=== PATIENT | male | born 1985 | race Caucasian/White ===

== ENCOUNTER → 2022-02-01 09:59 | Outpatient (BNVA) | payer MEDICAID, SELFPAY | PROVIDERS: PCP Nurse Practitioner; Visit Provider Orthopaedic Surgery | DX: R20.0 Anesthesia of skin (principal); R20.2 Paresthesia of skin | CPT/HCPCS: 99202 ==

== ENCOUNTER 2022-05-05 18:30 | Emergency (ER) | payer OTHER, MEDICAID, SELFPAY ==
--- NOTE | ~2022-05-05 | CT_ITS ---
EXAMINATION: CT CHEST WITHOUT CONTRAST CLINICAL INFORMATION: Pain status post trauma COMPARISON: None TECHNIQUE: Multidetector volumetric CT imaging of the chest was done. Axial MIP volume rendering provided. Sagittal and coronal reformatted images were obtained. This CT examination was performed using dose optimization techniques as appropriate, variously including the following: *Automated exposure control *Adjustment of mA and/or kV according to patient size (this includes techniques or standardized protocols for targeted exams where dose is matched to indication/reason for exam; i.e. 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 MEDIASTINUM: The mediastinum is normal. PLEURA: There is no pleural effusion. No pleural mass or thickening. AXILLA: No lymphadenopathy. Pronounced gynecomastia bilaterally. UPPER ABDOMEN: Unremarkable. OSSEOUS STRUCTURES: Unremarkable. CT/CT chest wo con IMPRESSION: Unremarkable examination. Within normal limits. No left-sided rib fracture. Fleischner guidelines were followed.
[2022-05-05 19:21] VITALS: BP 127/84; PULSE 75; RESP 20; TEMP 36.1; O2SAT 100; BMI 37.8
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
[2022-05-05 22:46] VITALS: BP 119/63; PULSE 65; RESP 20; O2SAT 99
[2022-05-05] MEDS: oxyCODONE HCl Immed Release 5 MG TABLET 10 MG PO (23:29)
== END 2022-05-05 23:31 | disposition home or self-care (01) ==
PROVIDERS: Emergency Provider Internal Medicine
DX: S20.212A Contusion of left front wall of thorax, initial encounter (principal); V47.5XXA Car driver injured in collision with fixed or stationary object in traffic accident, initial encounter; Y93.89 Activity, other specified; Y92.414 Local residential or business street as the place of occurrence of the external cause; Y99.9 Unspecified external cause status
CPT/HCPCS: 71250; 99283; 99284

== ENCOUNTER 2025-04-21 11:26 | Emergency (ER) | payer MEDICAID, SELFPAY ==
--- NOTE | ~2025-04-21 | XR_ITS ---
EXAMINATION: XR HIP, RIGHT CLINICAL INFORMATION: Fall, pain COMPARISON: None available. TECHNIQUE: AP pelvis and AP and lateral view right hip x-ray FINDINGS: 2 cannulated screws have been placed from a lateral approach into the greater trochanter straightening to the region of the medial femoral neck and lesser trochanter. A wire loops down into the proximal diaphysis of the femur. There is callus formation along the lateral proximal femoral diaphysis. There is flattening of the superior femoral head and moderate medial marginal osteophytes. There is also deformity with flattening of the right acetabular roof and marginal osteophytes. The left hip joint is unremarkable. SI joints are symmetrical and within normal limits. XR/XR hip RT w PEL1V IMPRESSION: Chronic appearing abnormality of the right hip joint, likely posttraumatic osteoarthritis. If there is concern for an acute fracture, consider CT. Electronically signed by: Boby Pichardo MD 04/21/2025 12:07 PM EDT
--- NOTE | ~2025-04-21 | CT_ITS ---
EXAMINATION: CT HIP WITHOUT CONTRAST, RIGHT CLINICAL INFORMATION: Right hip pain. COMPARISON: Right hip plain films dated earlier same day. TECHNIQUE: Multidetector volumetric imaging was obtained through the right hip without contrast material. Multiplanar reformatted images were submitted in coronal and sagittal planes. This CT examination was performed using dose optimization techniques as appropriate, variously including the following: *Automated exposure control *Adjustment of mA and/or kV according to patient size (this includes techniques or standardized protocols for targeted exams where dose is matched to indication/reason for exam; i.e. extremities or head) *Use of iterative reconstruction technique FINDINGS: There is no definite acute fracture or dislocation. There is a healed right proximal femoral fracture, fixated by 2 compression screws oriented lateral to medial from the greater trochanter and terminating in the right femoral neck region. There is no periscrew lucency to suggest loosening of the hardware. There is a solitary cerclage wire extending inferiorly, coursing through bony callus. Large amount of bony callus is present inferior to the greater trochanter from healing. There is mild flattening of the femoral head and flattening of the superior acetabulum. There are both superior acetabular osteophytes, and subcapital osteophytes present with mild to moderate joint space narrowing. There is no joint effusion present. The imaged pelvic girdle musculature is normal in appearance. No abnormal fluid collection is present. Imaged intrapelvic viscera appear normal. No inguinal abnormalities. CT/CT hip RT wo IV con IMPRESSION: 1. No acute findings of the right hip or imaged pelvis. 2. Moderate likely posttraumatic arthropathy of the right hip joint. Electronically signed by: Owen Moore MD 04/21/2025 02:01 PM EDT
[2025-04-21 11:29] VITALS: BP 128/70; PULSE 85; RESP 16; TEMP 36.4; O2SAT 99; BMI 36.2
--- NOTE | 2025-04-21 11:30 | ED_ITS ---
HPI - Extremity Injury (Lower) General Chief Complaint: Extremity Injury, Lower Stated Complaint: R hip injury Time Seen by Provider: 04/21/25 12:45 Source: patient and family Mode of arrival: ambulatory Limitations: no limitations History of Present Illness ED Provider: DR. Pereira HPI Narrative: Patient is a 40-year-old male who presents emergency department for evaluation, reporting My hip popped on monday while dancing with kids and made a quick turn, with resultant fall. States when I was 13 they cut off a part of my bone nad put 2 screws in it chronically right lower extremity is longer than the left. Denies chronic pain . Has had no relief from lidocaine patch, ibuprofen, icy hot. Patient still able to ambulate and bear weight with difficulty. Related Data Previous Rx's ?Medication ?Instructions ?Recorded ibuprofen 600 mg tablet 600 mg PO Q6H PRN pain #30 t abs 05/05/22 oxycodone-acetaminophen 5 mg-325 1 tab PO Q6H PRN pain #20 tabs 05/05/22 mg tablet (Percocet) oxycodone 5 mg tablet 5 mg PO BID PRN pain #7 tabs 04/21/25 Allergies Allergy/AdvReac Type Severity Reaction Status Date / Time No Known Allergies Allergy Verified 04/21/25 11:32 Review of Systems Review of Systems: All other systems are reviewed and are negative Constitutional: Reports as per HPI and Reports no additional constitutional complaints Eyes: Reports as per HPI and Reports no additional eye complaints Reports system reviewed and no additional complaints, except as documented Cardiovascular: Reports as per HPI and Reports no additional cardiovascular complaints Respiratory: Reports as per HPI and Reports no additional respiratory complaints Gastrointestinal: Reports as per HPI and Reports no additional gastrointestinal complaints Genitourinary: Reports no additional female genitourinary complaints Musculoskeletal: Reports no additional musculoskeletal complaints Skin/Breast: Reports system reviewed and no additional complaints, except as docu Psychiatric: Reports no additional psychiatric complaints Endocrine: Reports no additional endocrine complaints Hematologic/Lymphatic: Reports no additional hematologic/lymphatic complaints Allergic/Immunologic: Reports no additional allergic/immunologic complaints Reports system reviewed and no additional complaints, except as documented and Reports Abnormal speech present PMFSH Past Medical History Surgical History History of hip surgery Social History Social History Unable to assess alcohol history related to: Unknown Use of substances other than those prescribed or required for medical reasons: Unknown Advance Directives: No Advance Directives Information Provided: Yes Do you have a plan to hurt others: No Plan Current occupational status: employed 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 Blood pressure elevated. Heart rate normal. Respiratory rate normal. Temperature normal. Oxygen saturation normal. Appearance: Alert. Oriented X3. No acute distress. Head: Normal external exam. Normocephalic. Atraumatic. No Streeter signs noted. No raccoon eyes noted Eyes: PERRLA. EOMI. Conjunctiva and sclera normal. Eyelids normal. ENT: TM's Normal. Pharynx normal. Uvula midline. Moist mucous membranes. No trismus noted. No drooling noted. No muffled voice noted. Neck: Normal inspection. Neck supple. FROM. No adenopathy. Thyroid Normal. No meningeal signs. No neck mass noted. CVS: Normal heart rate and rhythm. Heart sound normal. No murmurs noted. Pulses normal throughout. Respiratory: No respiratory distress. Painless inspiration. Breath sounds normal. No wheezes/rales/rhonchi noted. Chest nontender. No accessory muscle usage noted or decreased air movement noted. Abdomen: Soft and nontender. Bowel sounds normal in all 4 quadrants. No distention noted. No organomegaly noted. No visible injury noted. Back: No CVA tenderness. Full range of motion noted. Skin: Skin warm and dry. Normal skin color. Normal skin turgor. No rashes/lesions/lacerations noted. Extremities: No obvious deformity in the right hip joint, no step-off, No lower extremity edema. Extremities exhibit normal range of motion. Extremities nontender. Neuro: Oriented X 3. Cranial nerve exam: II-XII are grossly intact No motor deficit. No sensory deficit. Reflexes normal. Course Course Course Narrative: This is an RME performed by Branden Dominguez CNP: Additional HPI, ROS, PE not included below will be deferred to primary provider. Patient is a 40-year-old male who presents emergency department for evaluation, reporting My hip popped on monday while dancing with kids and made a quick turn, with resultant fall. States when I was 13 they cut off a part of my bone nad put 2 screws in it . Denies chronic pain . Has had no relief from lidocaine patch, ibuprofen. Plan: XR Reevaluation(s) Reevaluation #1: Patient feels better after pain medication, history of chronic osteoarthritis, history of right hip surgery, x-ray/CT of the right hip are unremarkable. Sprain of the right hip is the most likely diagnosis. No fever, no chills, no cellulitic address change clerk the joint, no concern of infection. Time: 15:15 Medications Administered Discontinued Medications Generic Name Dose Route Start Last Admin Trade Name Freq PRN Reason Stop Dose Admin Hydromorphone HCl 2 mg 04/21/25 12:52 04/21/25 13:04 Hydromorphone Hcl 2 Mg/Ml Vial IM 04/21/25 12:53 2 mg ONCE ONE Administration Protocol Ketorolac Tromethamine 15 mg 04/21/25 12:52 04/21/25 13:04 Ketorolac Tromethamine 15 Mg/Ml Vial IM 04/21/25 12:53 15 mg ONCE ONE Administration Medical Decision Making Differential Diagnosis Differential Diagnoses: The differential diagnosis associated with the presentation includes (Right hip fracture, right hip dislocation, right hip infection, myofascial pain, hip sprain.) Admission/Observation Consideration of admission/observation: Escalation of care including admission/observation considered Independent Interpretation I performed an independent interpretation of an: Plain X-Ray (Right hip x- ray:Chronic appearing abnormality of the right hip joint, likely posttraumatic osteoarthritis. If there is concern for an acute fracture, consider CT. ) and CT Scan (Right hip:1. No acute findings of the right hip or imaged pelvis. 2. Moderate likely posttraumatic arthropathy of the right hip joint.) Radiology Impression Discussion of test interpretation with radiology: I have reviewed the radiologist's reading. 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 No Action oxycodone-acetaminophen [Percocet] 5-325 mg tablet 1 tab PO Q6H PRN (Reason: pain) Qty: 20 0RF Rx Instructions: Partial Fill upon patient request. ibuprofen 600 mg tablet 600 mg PO Q6H PRN (Reason: pain) Qty: 30 0RF Referrals: Joaquin Earl MD [Physician, Orthopedics] Print Language: Panamanian
--- NOTE | 2025-04-21 12:56 | PC.NURSE ---
Patient is a 40 yo male who presents with a chronic right hip condition. States he felt a pop when rotating that hip and started with pain. Respirations even and non-labored. Abdomen soft, non-tender with positive bowel sounds. Positive pedal pulses with no edema.
--- OUTSIDE RECORDS SUMMARY | 2025-04-21 13:28 | XMS_ITS | Clinical Summary ---
Author Organization [employer] Address [address] [place] [address] [address] [place] [address] Care Team Providers Care Registered Midwife Name Role Phone Neeru Ribera NP Primary Care Provider [phone] Allergies No known active allergies Medications No known medications Active Problems Problem Noted Date Diagnosed Date Dental abscess 03/27/2024 Dental calculus 03/27/2024 Severe dental caries 03/27/2024 Allergic rhinitis 12/30/2021 Paresthesia of both hands 12/30/2021 Social History Tobacco Use Types Packs/Day Years Used Date Smoking Tobacco: Every Day Cigarettes Smokeless Tobacco: Never Tobacco Cessation:Ready to Q uit: Not Asked; Counseling Given: Not Answered Alcohol Use Standard Drinks/Week Comments Defer 0 (1 standard drink = 0.6 oz pur e alcohol) Sex and Gender Information Value Date Recorded Sex Assigned at Male 08/15/2022 10:40 AM EDT Legal Sex Male 10:40 AM EDT Gender Identity Male 08/15/2022 10:40 AM EDT Sexual Orientation Straight 08/15/2022 10 :40 AM EDT Last Filed Vital Signs Vital Sign Reading Time Taken Comments Blood Pressure 112/76 06/06/2024 8:06 AM EDT Pulse 70 03/27/2024 9:03 AM EDT Temperature - - Respiratory Rate - - Oxygen Saturation - - Inhaled Oxygen Concentration - - Weight 99.2 kg (218 lb 9.6 oz) 05/16/2022 12:08 AM EDT Height 161.3 cm (5' 3.5 ) 05/16/2022 12:08 AM ED T Body Mass Index 38.12 05/16/2022 12:08 AM EDT Plan of Treatment Health Maintenance Due Date Last Done Comments Depression Screening 1986 SDOH Screening 1986 Disability Screening 1986 Alcohol/Substance Use Screening 1998 Family Planning (PISQ) 2001 DTaP/Tdap/Td Vaccines (1 - Tdap) 2005 Hepatitis B Vaccines (1 of 3 - 19+ 3-dose series) 2005 Pneumococcal Vaccine: Pediatrics (0 to 5 Years) and At-Risk Patients (6 to 49) Years (1 of 2 - PCV) 2005 COVID-19 Vaccine ( - 2023-2 5 season) 2024 07/23/2021, 07/01/2021 Dental Oral Exam 10/19/2024 04/17/2024 Dental Prophylaxis 12/08/2024 06/06/2024 Dental X-Ray: Bitewings 04/18/2025 04/17/20, 03/04/2024 Tobacco Screening 06/06/2025 06/06/2024 Influenza Vaccine (#1) 2025 Lipid Panel 01/04/2027 01/04/2022 Dental X-Ray: Full Mouth 04/18/2027 04/17/2024 Zoster Vaccines (1 of 2) 2036 RSV Patients and Patients Aged 60 years or older (1 - 1-dose 75+ series) 2061 HIV Screening Completed 01/04/2022 Hepatitis C Screening Completed 01/04/2022 HIB Vaccines Aged Out No longer eligi ble based on patient's age to complete this topic HPV Vaccines Aged Out No longer eligi ble based on patient's age to complete this topic Hepatitis A Vaccines Aged Out No long er eligible based on patient's age to complete this topic IPV Vaccines Aged Out No longer eligi ble based on patient's age to complete this topic Meningococcal B Vaccine Aged Out No l onger eligible based on patient's age to complete this topic Meningococcal Vaccine Aged Out No ana luisa tere eligible based on patient's age to complete this topic RSV under 20 months Aged Out No longe r eligible based on patient's age to complete this topic Rotavirus Vaccines Aged Out No longer eligible based on patient's age to complete this topic Procedures Procedure Name Priority Date/Time Associated Diagnosis Comments PROPHYLAXIS - ADULT Routine 06/06/2024 8 :00 AM EDT Dental plaque Dental calculus Subgingival dental calculus Periodontal disease INTRAORAL - COMPLETE SERIES OF RADIOGRAPHIC IMAGES Routine 04/17/2024 10:30 AM EDT Encounter for dental examination Periodontal disease Dental calculus COMPREHENSIVE ORAL EVALUATION - NEW OR ESTABLISHED PATIENT Routine 04/17/2024 10:30 AM EDT Encounter for dental examination Periodontal disease Dental calculus ZZZ HISTORICAL HEPATITIS C AB W/REFL TO HCV RNA, QN, PCR Routine 01/04/2022 9:47 AM EDT HIV 1/2 ANTIGEN/ANTIBODY, FOURTH GENERATION W/RFL Routine 01/04/2022 9:47 AM EDT LIPID PANEL, STANDARD Routine 01/04/2022 9:47 AM EDT from Last 3 Months or Most Recently Relevant to Health Maintenance Results * HEPATITIS C AB W/REFL TO HCV RNA, QN, PCR (01/04/2022 9:47 AM EDT) HEPATITIS C ANTIBODY NON-REACT CIARAN NON-REACT CIARAN [facility] INDEX 0.02 <1.00 [facility] Comment: HCV antibody was non-reactive. There is no laboratory evidence of HCV infection. In most cases, no further action is required. However, if recent HCV exposure is suspected, a test for HCV RNA (test code 64089) is suggested. For additional information please refer to http://education.[employer].NetTalon/faq/WFZ58l1 (This link is being provided for informational/ educational purposes only.) 01/04/2022 9:47 AM EDT us Kizzy Velasquez NP HISTORICAL/NON ORDERABLE LABS F inal Result [facility] [address] * HIV 1/2 ANTIGEN/ANTIBODY,FOURTH GENERATION W/RFL (01/04/2022 9:47 AM EDT) HIV-1/2 ANTIGEN AND ANTIBODIES, 4TH GENERATION W/ REFLEX NON-REACT CIARAN NON-REACT CIARAN [facility] Comment: HIV-1 antigen and HIV-1/HIV-2 antibodies were not detected. There is no laboratory evidence of HIV infection. PLEASE NOTE: This information has been disclosed to you from records whose confidentiality may be protected by state law. If your state requires such protection, then the state law prohibits you from making any further disclosure of the information without the specific written consent of the person to whom it pertains, or as otherwise permitted by law. A general authorization for the release of medical or other information is NOT sufficient for this purpose. For additional information please refer to http://education.groopify/faq/AJQ771 (This link is being provided for informational/ educational purposes only.) The performance of this assay has not been clinically validated in patients less than 2 years old. 01/04/2022 9:47 AM EDT Kizzy Velasquez NP LAB BLOOD ORDERABLES Final Resu lt [facility] [address] * (ABNORMAL) LIPID PANEL, STANDARD (01/04/2022 9:47 AM EDT) Chol/HDLC Ratio 4.0 <5.0 (calc) [facility] Cholesterol, Total 185 <200 mg/dL [facility] HDL Cholesterol 46 > OR = 40 mg/dL [facility] LDL Cholesterol 113(H) mg/dL (calc) [facility] Comment: Reference range: <100 Desirable range <100 mg/dL for primary prevention; <70 mg/dL for patients with CHD or diabetic patients with > or = 2 CHD risk factors. LDL-C is now calculated using the Misha-Jaron calculation, which is a validated novel method providing better accuracy than the Friedewald equation in the estimation of LDL-C. Misha SOTO et al. ABBEY. 2013;310(19): 9637-6807 (http://education.[employer].NetTalon/faq/UYK411) Non-HDL Cholesterol 139(H) <130 mg/dL (calc) [facility] Comment: For patients with diabetes plus 1 major ASCVD risk factor, treating to a non-HDL-C goal of <100 mg/dL (LDL-C of <70 mg/dL) is considered a therapeutic option. Triglycerides 149 <150 mg/dL [facility] 01/04/2022 9:47 AM EDT us Kizzy Velasquez NP LAB BLOOD ORDERABLES Final Resu lt [facility] [address] from Last 3 Months or Most Recently Relevant to Health Maintenance Insurance [facility] STAND ADULT Care Teams Registered Midwife Relationship Specialty Start Date End Date Neeru Ribera NP [address] [place] [address] PCP - General Family Medicine 11/20/23
[2025-04-21 14:00] VITALS: BP 122/48; PULSE 65; RESP 16; O2SAT 97
[2025-04-21 15:37] VITALS: BP 120/66; PULSE 58; RESP 17; TEMP 35.6; O2SAT 97
[2025-04-21 15:42] VITALS: BP 120/66; PULSE 58; RESP 17; TEMP 35.6; O2SAT 97
--- NOTE | 2025-04-21 15:45 | PC.NURSE ---
Discharge instructions and prescription reviewed. Patient verbalized understanding. To f/u with ortho. Ambulated out of the department with a steady gait.
== END 2025-04-21 15:47 | disposition home or self-care (01) ==
PROVIDERS: Emergency Provider Emergency Medicine
DX: M25.551 Pain in right hip (principal); R10.2 Pelvic and perineal pain
CPT/HCPCS: 73502; 73700; 96372; 99284; J1171; J1885

== ENCOUNTER → 2025-04-21 11:32 | Outpatient (BNV) | payer OTHER, MEDICAID, SELFPAY | PROVIDERS: Emergency Provider Emergency Medicine; Visit Provider Radiology Diagnostic Radiology | DX: M25.551 Pain in right hip (principal); W19.XXXA Unspecified fall, initial encounter | CPT/HCPCS: 73502; 73700 ==

== ENCOUNTER 2025-05-15 08:26 | Outpatient (REF) | payer MEDICAID, SELFPAY ==
--- OUTSIDE RECORDS SUMMARY | 2025-05-16 08:38 | XMS_ITS | Clinical Summary ---
Author Organization [employer] Address [address] [place] [address] [address] [place] [address] Care Team Providers Care Carriage Dogger Name Role Phone Neeru Ribera NP Primary Care Provider [phone] Allergies No known active allergies Medications No [...] C ANTIBODY NON-REACT CIARAN NON-REACT CIARAN [facility] INDEX 0.02 <1.00 [facility] Comment: HCV antibody was non-reactive. There is no laboratory evidence of HCV infection. In most cases, no further action is required. However, if recent HCV exposure is suspected, a test for HCV RNA (test code 76378) is suggested. For additional information please refer to http://education.[employer]/faq/CGW68h7 (This link is being provided for informational/ educational purposes only.) 01/04/2022 9:47 AM EDT us Kizzy Velasquez NP HISTORICAL/NON ORDERABLE LABS F inal Result [facility] [address] * HIV 1/2 ANTIGEN/ANTIBODY,FOURTH GENERATION W/RFL (01/04/2022 9:47 AM EDT) HIV-1/2 ANTIGEN AND ANTIBODIES, 4TH GENERATION W/ REFLEX NON-REACT CIARAN NON-REACT CIARAN [facility] Comment: HIV-1 antigen and HIV-1/HIV-2 [...] purpose. For additional information please refer to http://education.[employer]/faq/ISE710 (This link is being provided for informational/ educational purposes only.) The performance of this assay has not been clinically validated in patients less than 2 years old. 01/04/2022 9:47 AM EDT us Kizzy Velasquez AWNING HANGER LAB BLOOD ORDERABLES Final Resu lt [facility] [address] * (ABNORMAL) LIPID PANEL, STANDARD (01/04/2022 9:47 AM EDT) Chol/HDLC Ratio 4.0 <5.0 (calc) [facility] Cholesterol, Total 185 <200 mg/dL [...] LDL-C. Misha SOTO et al. ABBEY. 2013;310(19): 8824-5408 (http://education.[employer]/faq/LVR758) Non-HDL Cholesterol 139(H) <130 mg/dL (calc) [facility] Comment: For patients with diabetes plus 1 major ASCVD risk factor, treating to a non-HDL-C goal of <100 mg/dL (LDL-C of <70 mg/dL) is considered a therapeutic option. Triglycerides 149 <150 mg/dL [facility] 01/04/2022 9:47 AM EDT us Kizzy Velasquez NP LAB BLOOD ORDERABLES Final Resu lt [facility] [address] from Last 3 Months or Most Recently Relevant to Health Maintenance Insurance [place] Care Teams Carriage Dogger Relationship Specialty Start Date End Date Neeru Ribera NP [address] [place] [address] PCP - General Family Medicine 11/20/23
== END 2025-05-15 08:27 | disposition home or self-care (01) ==
LOC: HO.HOSX 08:26
PROVIDERS: Visit Provider Physician Assistant
DX: M16.11 Unilateral primary osteoarthritis, right hip (principal); M25.551 Pain in right hip; Z87.39 Personal history of other diseases of the musculoskeletal system and connective tissue
CPT/HCPCS: 99212

== ENCOUNTER 2025-05-15 09:35 | Outpatient (AMB) | payer MEDICAID, SELFPAY ==
[2025-05-15 09:41] VITALS: BMI 36.2
--- NOTE | 2025-05-15 09:41 | MHC.OFFVIS ---
Vital Signs 05/15/25 09:41 Height 5 ft 4 in Weight 211 lb BMI 36.2 Intake Visit Reasons: ED- Right hip pain, DOI: 04/18/25 Intake Note: John is a 40 year old male who presents today as a new patient for a evaluation of right hip pain, that started at a young age, worsening since 04/18/25 after twisting too quickly, causing him to fall to the ground. Patient describes pain as a constant pressure, primarily located at the right hip, radiating down to the right knee, no numbness sensation. He shares it is hard to sit down. Patient was seen at [facility] on 04/21/25, prescribed Oxycodone without relief of pain. Right hip CT was done at the ED as well. Patient has also tried Ibuprofen and heating pads without relief. Patient reports history of Frvx-Uzlwm-rnlojnh disease at [facility], 09/21/98. Allergies No Known Allergies Allergy (Verified 05/15/25 09:44) HPI HPI ED- Right hip pain, DOI: 04/18/25: Details: Mr. Yoon is a 40 yo male who presents to the office today for evaluation of right hip pain that is acute on chronic in nature. 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 On 04/18/2025 the patient states that he twisted quickly and felt immediate pain in the right hip traveling down into the thigh. He denies any numbness or tingling. At baseline the patient does experience pain and range of motion limitations however after this injury this has significantly increased. He presented to the emergency department on 04/21/2025 where x-rays and a CT scan were obtained. Imaging was negative for any acute fracture or dislocation. However significant for postsurgical arthropathy. Intact orthopedic hardware. 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 No tenderness to palpation over the greater trochanteric bursa. Able to perform straight leg raise. NVI. Psych Appearance: grossly normal Mental Status: mental status grossly normal Attitude: cooperative Assessment & Plan Assessment & Plan (1) Osteoarthritis of right hip: Code(s): M16.11 - Unilateral primary osteoarthritis, right hip Category: Medical (2) History of Nfjm-Fwpyu-Attoqyl disease: Code(s): Z87.39 - Personal history of other diseases of the musculoskeletal system and connective tissue Category: Medical Plan Mr. Yoon is a 40 yo male who presents to the office today for evaluation of right hip pain that is acute on chronic in nature. 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 On 04/18/2025 the patient states that he twisted quickly and felt immediate pain in the right hip traveling down into the thigh. He denies any numbness or tingling. At baseline the patient does experience pain and range of motion limitations however after this injury this has significantly increased. He presented to the emergency department on 04/21/2025 where x-rays and a CT scan were obtained. Imaging was negative for any acute fracture or dislocation. However significant for postsurgical arthropathy. Intact orthopedic hardware. While in the office today Dr. Earl was available to review the x-ray imaging as well as CT scan in a collaborative treatment plan was created. At this time, the patient was referred to physical therapy and I sent a prescription for Celebrex 200 mg to be taken p.o. b.i.d. for inflammation. He can take Tylenol to assist with pain management. No additional orthopedic intervention warranted at this time as patient is too young for hip replacement. He will follow up PRN, sooner if needed Left hip x-rays obtained on 04/21/2025: IMPRESSION: Chronic appearing abnormality of the right hip joint, likely posttraumatic osteoarthritis. If there is concern for an acute fracture, consider CT. CT scan of the left hip obtained on 04/21/2025: IMPRESSION: 1. No acute findings of the right hip or imaged pelvis. 2. Moderate likely posttraumatic arthropathy of the right hip joint. Orders: Orders XR hip LT min 2V Today M25.559 - Pain in unspecified hip PT Evaluation and Treatment Today M16.11 - Unilateral primary osteoarthritis, right hip, Z87.39 - Personal history of other diseases of the musculoskeletal system and connective tissue Medications: New celecoxib (Celebrex) 200 mg PO BID 60 caps 0RF 30 days Coding Level of Care Code New Pt Level 4 (13655) Diagnoses Osteoarthritis of right hip M16.11 History of Amet-Qukzy-Dnqhufc disease Z87.39
--- OUTSIDE RECORDS SUMMARY | 2025-05-15 09:59 | XMS_ITS | Clinical Summary ---
Author Organization [employer] Address [address] [place] [address] [address] [place] [address] Care Team Providers Care Striping Machine Operator Name Role Phone Neeru Ribera NP Primary Care Provider Allergies No known active allergies Medications No [...] Use Screening 1998 Family Planning (PISQ) 2001 HPV Vaccines (1 - Male 3-dos e series) 2001 DTaP/Tdap/Td Vaccines (1 - Tdap) 2005 Hepatitis B Vaccines (1 of 3 - 19+ 3-dose series) 2005 Pneumococcal Vaccine: Pediatrics (0 to 5 Years) and At-Risk Patients (6 to 49) Years (1 of 2 - PCV) 2005 COVID-19 Vaccine ( - 2023-2 5 season) 2024 07/23/2021, 07/01/2021 Dental Oral Exam 10/19/2024 04/17/2024 Dental Prophylaxis 12/08/2024 06/06/2024 Dental X-Ray: Bitewings 04/18/2025 04/17/20 24, 03/04/2024 Tobacco Screening 06/06/2025 06/06/2024 Influenza Vaccine [...] HEPATITIS C ANTIBODY NON-REACT CIARAN NON-REACT CIARAN [facility] INDEX 0.02 <1.00 [facility] Comment: HCV antibody was non-reactive. There is no laboratory evidence of HCV infection. In most cases, no further action is required. However, if recent HCV exposure is suspected, a test for HCV RNA (test code 17143) is suggested. For additional information please refer to http://education.[facility].[employer]/faq/HWF84y8 (This link is being provided for informational/ educational purposes only.) 01/04/2022 9:47 AM EDT us Kizzy Velasquez NP HISTORICAL/NON ORDERABLE LABS F inal Result [facility] [address] * HIV 1/2 ANTIGEN/ANTIBODY,FOURTH GENERATION W/RFL (01/04/2022 9:47 AM EDT) HIV-1/2 ANTIGEN AND ANTIBODIES, 4TH GENERATION W/ REFLEX NON-REACT CIARAN NON-REACT CIARAN [facility] Comment: HIV-1 antigen and HIV-1/HIV-2 [...] purpose. For additional information please refer to http://education.[employer]/faq/MFE801 (This link is being provided for informational/ educational purposes only.) The performance of this assay has not been clinically validated in patients less than 2 years old. 01/04/2022 9:47 AM EDT us Kizzy Velasquez MACHINE SHOP SUPERVISOR LAB BLOOD ORDERABLES Final Resu lt [facility] [address] * (ABNORMAL) LIPID PANEL, STANDARD (01/04/2022 9:47 AM EDT) Chol/HDLC Ratio 4.0 <5.0 (calc) [facility] Cholesterol, Total 185 <200 mg/dL [facility] HDL Cholesterol 46 > OR = 40 mg/dL [facility] LDL Cholesterol 113(H) mg/dL (calc) [facility] Comment: Reference range: <100 Desirable range <100 mg/dL for primary prevention; <70 mg/dL for patients with CHD or diabetic patients with > or = 2 CHD risk factors. LDL-C is now calculated using the Misha-Jaron calculation, which is a validated novel method providing better accuracy than the Friedewald equation in the estimation of LDL-C. Misha SOTO et al. ABBEY. 2013;310(19): 3433-5700 (http://education.[employer]/faq/DZE041) Non-HDL Cholesterol 139(H) <130 mg/dL (calc) [facility] Comment: For patients with diabetes plus 1 major ASCVD risk factor, treating to a non-HDL-C goal of <100 mg/dL (LDL-C of <70 mg/dL) is considered a therapeutic option. Triglycerides 149 <150 mg/dL [facility] 01/04/2022 9:47 AM EDT us Kizzy Velasquez NP LAB BLOOD ORDERABLES Final Resu lt [facility] [address] from Last 3 Months or Most Recently Relevant to Health Maintenance Insurance [place] AD[place] Care Teams Striping Machine Operator Relationship Specialty Start Date End Date Neeru Ribera NP [address] [place] [address] PCP - General Family Medicine 11/20/23
== END 2025-05-15 10:22 | disposition home or self-care (01) ==
PROVIDERS: Visit Provider Physician Assistant
DX: M16.11 Unilateral primary osteoarthritis, right hip (principal); Z87.39 Personal history of other diseases of the musculoskeletal system and connective tissue
CPT/HCPCS: 99204